=== PATIENT | male | born 1990 | race Caucasian/White ===

== ENCOUNTER 2024-07-13 18:16 | Emergency (ER) | payer OTHER ==
[~2024-07-13] VITALS: Ht 182.9 cm; Wt 154.5 kg
[2024-07-13] MEDS ORDERED: ALBU8.5H (18:25)
[2024-07-13 19:00] LABS: BASO % 0.3 % (0.0-1.0); EOS % 0.1 % (0.0-3.0); HEMATOCRIT 47.1 % (42.0-52.0); LYMPH # 0.7 10^3/uL (1.5-5.0); LYMPH % 4.8 % (24.0-44.0); MEAN CORPUSCULAR HEMOGLOBIN 31.8 pg (27.0-33.0); MEAN CORPUSCULAR HGB CONC 36.1 g/dl (32.0-36.5); MONO % 6.8 % (2.0-8.0); NEUTROPHILS # 12.8 10^3/uL (1.5-8.5); NEUTROPHILS % 87.5 % (36.0-66.0); PLATELET COUNT, AUTOMATED 274 10^3/uL (150-450); RED BLOOD COUNT 5.35 10^6/uL (4.30-6.10); WHITE BLOOD COUNT 14.7 10^3/uL (4.0-10.0)
[2024-07-13 19:27] LABS: BLOOD UREA NITROGEN 17 MG/DL (9-23); CALCIUM LEVEL 8.3 MG/DL (8.5-10.1); CARBON DIOXIDE LEVEL 27 MMOL/L (20-31); CHLORIDE LEVEL 102 MMOL/L (98-107); CK-MB VALUE MASS < 1.0 NG/ML (<3.6); CPK CREATINE PHOSPHOKINASE 100 U/L (46-171); CREATININE FOR GFR 1.09 MG/DL (0.70-1.30); GLOMERULAR FILTRATION RATE > 60.0 (>60); GLUCOSE, FASTING 99 MG/DL (60-100); POTASSIUM SERUM 3.7 MMOL/L (3.5-5.1); SODIUM LEVEL 139 MMOL/L (136-145)
[2024-07-13] MEDS: UNRESOLVED CLARIFICATION ENTRY XX STA (19:46)
[2024-07-13] MEDS: methocarbamoL 500 MG TAB PO ONE (19:54)
[2024-07-13] MEDS: KETOROLAC 30 MG/ML 1ML VIAL IV ONE (19:55)
[2024-07-13 21:03] LABS: AMORPHOUS SEDIMENT SMALL (NEGATIVE); APPEARANCE, URINE HAZY (CLEAR); BACTERIA, URINE AUTO NEGATIVE (NEGATIVE); BILIRUBIN, URINE AUTO 1+ (NEGATIVE); BLOOD, URINE BLOOD NEGATIVE (NEGATIVE); COLOR, URINE AMBER (YELLOW); GLUCOSE, URINE (UA) AUTO NEGATIVE (NEGATIVE); KETONE, URINE AUTO NEGATIVE (NEGATIVE); LEUKOCYTE ESTERASE, URINE AUTO NEGATIVE (NEGATIVE); MUCUS, URINE SMALL (NEGATIVE); NITRITE, URINE AUTO NEGATIVE (NEGATIVE); PROTEIN, URINE AUTO 1+ mg/dL (NEGATIVE); RBC, URINE AUTO 3 /HPF (0-3); SPECIFIC GRAVITY URINE AUTO 1.034 (1.002-1.035); SQUAMOUS EPITHELIAL CELL UR AU 0 /HPF (0-6); WBC, URINE AUTO 2 /HPF (0-3)
[2024-07-13] MEDS ORDERED: LIDO5DIS41 TD (23:11)
[2024-07-13] MEDS ORDERED: UNRESOLVED CLARIFICATION ENTRY XX STA (23:11)
[2024-07-13] MEDS: LIDOCAINE 5% (LIDODERM) PATCH TD ONE (23:16)
[2024-07-13 23:23] VITALS: BP 116/63; TEMP 98.5; O2SAT 98
== END 2024-07-13 23:30 | disposition home or self-care (01) ==
LOC: M ED 18:16
DX: R55 Syncope and collapse (principal); M54.50 Low back pain, unspecified; E78.5 Hyperlipidemia, unspecified; J45.909 Unspecified asthma, uncomplicated; Z88.1 Allergy status to other antibiotic agents; Z88.8 Allergy status to other drugs, medicaments and biological substances; Z79.51 Long term (current) use of inhaled steroids; Z79.899 Other long term (current) drug therapy
CPT/HCPCS: 71046; 72110; 80048; 81001; 82550; 82553; 84484; 85025; 87486; 87581; 87633; 87798; 93005; 96374; 99284; J1885

== ENCOUNTER → 2024-11-08 | Outpatient (CLI) | payer OTHER ==
[~2024-11-08] MED LIST: ALBU8.5H; LIDO1ADH93 TD
== END ==
LOC: M PLAIMG 12:24
PROVIDERS: ATTEND Physical Medicine & Rehabilitation
DX: M47.897 Other spondylosis, lumbosacral region (principal); M51.362 Other intervertebral disc degeneration, lumbar region with discogenic back pain and lower extremity pain; M46.1 Sacroiliitis, not elsewhere classified; M51.26 Other intervertebral disc displacement, lumbar region; M48.061 Spinal stenosis, lumbar region without neurogenic claudication

== ENCOUNTER → 2024-11-19 | Outpatient (CLI) | payer OTHER ==
[2024-11-19 13:54] LABS: CREATININE FOR GFR 1.07 MG/DL (0.70-1.30); GLOMERULAR FILTRATION RATE > 90.0 (>60)
[2024-11-19 13:55] LABS: C REACTIVE PROTEIN QUANTITATIV < 0.50 MG/DL (<1.0)
== END ==
LOC: M WUC 09:46
PROVIDERS: ATTEND Physical Medicine & Rehabilitation
DX: M47.896 Other spondylosis, lumbar region (principal); M47.897 Other spondylosis, lumbosacral region; M51.362 Other intervertebral disc degeneration, lumbar region with discogenic back pain and lower extremity pain

== ENCOUNTER → 2024-11-22 | Outpatient (CLI) | payer OTHER ==
[2024-11-22 11:50] LABS: PLATELET COUNT, AUTOMATED 283 10^3/uL (150-450)
[2024-11-22 12:04] LABS: INR 1.05
== END ==
LOC: M WUC 09:10
PROVIDERS: ATTEND Physical Medicine & Rehabilitation
DX: Z01.818 Encounter for other preprocedural examination (principal)